=== PATIENT | male | born 1945 | race Caucasian/White ===

== ENCOUNTER 2016-07-27 23:30 | Observation (INO) | payer MEDICARE, OTHER ==
[~2016-07-27] VITALS: Ht 177.8 cm; Wt 117.2 kg
[2016-07-27 23:00] VITALS: PULSE 62
[~2016-07-27 23:30] MED LIST: FLUO-1 PO; FURO1TAB62 PO; HYDR-3535 PO; OXYC15TA55 PO; POTA-163 PO; TRAZ100T4 PO; XANA1TAB2 PO; b/p med PO
[2016-07-27 23:58] VITALS: BP 142/90; PULSE 62; RESP 20; TEMP 98.2; O2SAT 98
[2016-07-28] VITALS (10 sets, daily range): BP systolic 142–171; BP diastolic 84–105; PULSE 59–68; RESP 16–20; TEMP 96.3–98.9; O2SAT 95–98
[2016-07-28] MEDS ORDERED: SODIUM CHLORIDE 0.9% FLUSH 10 ML FLUSH PRN
[2016-07-28] MEDS ORDERED: ACETAMINOPHEN 325 MG TAB PO PRN (00:45)
[2016-07-28] MEDS ORDERED: traZODone HCL 100 MG TAB PO ONE (00:45)
[2016-07-28 01:28] LABS: CREATINE KINASE 92 U/L (39-308)
[2016-07-28 03:48] LABS: CREATINE KINASE 82 U/L (39-308)
[2016-07-28] MEDS ORDERED: NITROGLYCERIN 0.4 MG SL 25 TABS/BTL SL PRN (07:45)
[2016-07-28] MEDS ORDERED: cloNIDine HCL 0.1 MG TAB PO PRN (08:00)
--- NOTE | 2016-07-28 08:48 | HHI.HP ---
[facility] Admission Diagnosis Diagnoses: (1) Syncope Diagnosis: Principal (2) Chest pain Diagnosis: Principal (3) Hypertensive urgency Diagnosis: Principal Chief Complaint: "passed out", chest pain Travel History International Travel<30 Days: No Contact w/Intl Traveler <30 Da: No Traveled to Known Affected Are: No History of Present Illness Written by Enedina Agosto PA-C acting as scribe for on Dr. Tyson at ~0830. 71-year-old male with history of pacemaker, CAD, hypertension, chronic pain, anxiety presents with complaint of syncope and chest pain. He is a poor historian. Patient states that he had gotten up from bed yesterday morning and passed out. Admits to pain in his left shoulder and chest. He is unsure if chest pain preceded syncope or occurred afterward. He denies any lightheadedness or dizziness prior to syncope. Denies any associated shortness of breath or diaphoresis. He admits to headache now, but denies any headache yesterday. He states the chest pain lasted minutes and "knocked the wind" out of him. He denies taking anything for relief. He states he had been using icy hot for pain and in his back and legs recently. States he has chronic pain/ neuropathy in his legs after his bilateral knee replacements and uses a cane and walker at all times. Patient states chest pain is better today but states his BP is high and attributes it to pain. He is concerned about withdrawing from his pain medications. He states he tries not to take them even as often as prescribed. Patient states he sees a assistant librarian, Dr. Carroll on [facility], every 6 months. He had a stent placed a few years ago. Also states he has a heart murmur. Patient takes Lasix for leg swelling, but denies history of CHF. He denies any history of diabetes. Review of Systems ROS Limitations: Poor Historian Except as stated in HPI: all other systems reviewed are Neg Past Family Social History Past Medical History Coronary artery disease Hypertension Chronic pain/neuropathy anxiety Past Surgical History Pacemaker placement Coronary artery stent placement Bilateral knee replacements Brain aneurysm repair 2 in 2008 Reported Medications Lasix (Furosemide) 20 Mg Tab 20 Mg PO DAILY Lortab (Hydrocodone-Acetaminophen) 10-325 Mg Tab 1 Tab PO QID PRN Oxycontin (Oxycodone HCl) 15 Mg Tab 1 Tab PO BID Trazodone (Trazodone HCl) 100 Mg Tab 200 Mg PO BID Xanax (Alprazolam) 1 Mg Tab 1 Mg PO QID Potassium Chloride ER (Potassium Chloride) 20 Meq Tab 20 Meq PO DAILY Prozac (Fluoxetine HCl) 10 Mg Cap 10 Mg PO DAILY Amlodipine 5mg 1 Tab PO DAILY Allergies: Coded Allergies: No Known Allergies (Unverified , 07/27/16) Family History Mother and father: Metastatic cancer Social History Patient states he smokes "very little". He states he smokes stogies once in a while. Denies heavy alcohol. States he had alcohol the other night and had teaspoon of scotch yesterday. Does not admit to illicit drug use, but UDS positive for cannabinoids. Physical Exam Vital Signs Vital Signs Date Time Temp Pulse Resp B/P Pulse Ox O2 Delivery O2 Flow Rate FiO2 07/28/16 08:25 98 21 07/28/16 04:00 96.3 59 20 148/87 98 07/28/16 02:24 20 07/28/16 00:15 97 21 07/27/16 23:58 98.2 62 20 142/90 98 07/27/16 23:00 62 Physical Exam GENERAL: This is a pleasant well-nourished, well-developed patient, in no apparent distress. SKIN: No rashes, ecchymoses or lesions. Warm and dry. HEAD: Atraumatic. Normocephalic. EYES: No scleral icterus. No injection or drainage. NECK: Trachea midline. No carotid bruits bilaterally. CARDIOVASCULAR: Regular rate and rhythm without murmurs, gallops, or rubs. RESPIRATORY: Clear to auscultation. Breath sounds equal bilaterally. No wheezes , rales, or rhonchi. GASTROINTESTINAL: Normoactive bowel sounds. Abdomen nondistended. MUSCULOSKELETAL: No pretibial edema bilaterally. Tender over L ankle. NEUROLOGICAL: Awake and alert. Normal speech. PSYCHIATRIC: Normal mood and affect. Laboratory Laboratory Tests Test 07/28/16 07/28/16 00:25 03:15 Total Creatine Kinase 92 82 Troponin I LESS THAN 0.02 LESS THAN 0.[address] normal. Chest x-ray without acute disease. Assessment and Plan Assessment and Plan 71-year-old male with: Syncope: Patient appears to have passed out when he got up from bed yesterday. Likely orthostatic. CT of the brain performed in ED normal. -Orthostatic vital signs -Carotid ultrasound -Telemetry Chest pain: Troponin 4 less than 0.02. EKGs 3 with pacemaker spikes and no evidence of ischemia. EKG #3 with QTc of 460. Chest x-ray without acute disease. -Patient was given 324 mg of aspirin in the ED at 1999. Continue 81 mg daily aspirin this morning. -Nitroglycerin SL prn chest pain -Patient will undergo nuclear stress test. Remain nothing by mouth -Telemetry Hypertensive urgency: Highest BP of 193/89 in the ED. Patient was given 25 mg metoprolol in the ED. Patient's blood pressure improved but still elevated this morning. -Continue home Lasix -Have contacted pharmacy and confirmed patient is also prescribed Amlodipine 5 mg po daily. Chronic medical conditions include chronic pain and anxiety: Continue home medications. GI prophylaxis: Pepcid. DVT prevention: SCDs. Nuclear stress test negative for ischemia. Carotid ultrasound with atherosclerotic plaquing but no significant stenosis bilaterally. Orthostatic vital signs negative. Telemetry was reviewed and shows an accelerated idioventricular rhythm which occurred late last night as well as early this morning which is concerning. We will hold discharge and observe telemetry overnight. This note was transcribed by scribe [Enedina Agosto]. I, Dr. Edgar Tyson personally performed the history, physical exam, and medical decision making; and confirmed the accuracy of the information in the transcribed note. Authenticated by Dr. Edgar Tyson on 07/29/16 at 08:01. Enedina gAosto July 28, 2016 08:48 Edgar Tyson MD July 29, 2016 08:02
[2016-07-28] MEDS ORDERED: OXYCODONE PO SCH (09:00)
[2016-07-28] MEDS: SODIUM CHLORIDE 0.9% FLUSH 10 ML FLUSH IV FLUSH SCH ×2 (09:00→20:01)
[2016-07-28] MEDS: ALPRAZolam 1 MG TAB PO SCH ×4 (09:44→20:01)
[2016-07-28] MEDS: FUROSEMIDE 20 MG TAB PO SCH (09:44)
[2016-07-28] MEDS: POTASSIUM CHLORIDE 20 MEQ CONTROLLED RELEASE TAB PO SCH (09:44)
[2016-07-28] MEDS: traZODone HCL 100 MG TAB PO SCH ×2 (09:44→20:02)
[2016-07-28] MEDS: ACETAMINOPHEN/HYDROcodone 325 MG/10 MG TAB PO PRN ×3 (09:45→18:13)
[2016-07-28] MEDS ORDERED: REGADENOSON INJ 0.4 MG/5 ML SYR IV ONE (10:07)
[2016-07-28] MEDS: ASPIRIN EC 81 MG TABEC PO SCH (11:27)
[2016-07-28] MEDS: oxyCODONE HCL 10 MG CONTROLLED RELEASE TAB PO SCH ×2 (11:27→20:02)
[2016-07-28] MEDS: FAMOTIDINE 20 MG TAB PO SCH ×2 (11:27→20:02)
[2016-07-28] MEDS: FLUoxetine HCL 10 MG CAP PO SCH (11:27)
--- NOTE | 2016-07-28 11:34 | RADHPO ---
EXAM DATE/TIME: 07/28/2016 10:00 [facility] COMPARISON: No previous studies available for comparison. INDICATIONS : Chest pain for 1 day. Unable to walk on treadmill. Coronary artery disease. DOSE: 35 mCi Tc99m Myoview at stress. 11 mCi Tc99m Myoview at rest. 0.4 mg Lexiscan STRESS SYMPTOMS: Headache. EJECTION FRACTION: 66% MEDICAL HISTORY : Myocardial infarction. Hypertension. Current smoker. SURGICAL HISTORY : Coronary artery stent. Pacemaker. ENCOUNTER: Initial ACUITY: 1 day PAIN SCALE: 3/10 LOCATION: Bilateral chest TECHNIQUE: The patient underwent pharmacologic stress with infusion of prescribed dose. Continuous ECG tracing was monitored during stress. Gated SPECT imaging was performed after stress and conventional SPECT i maging was performed at rest. The examination was performed on a SPECT/CT scanner, both attenuation and non-corrected datasets were reviewed. FINDINGS: DISTRIBUTION: The maximum perfused segment at stress is in the anterolateral wall. PERFUSION STUDY: The pattern of perfusion at stress is within normal limits. GATED STUDY: There is intact wall motion and thickening without hypokinetic or dyskinetic segments. CONCLUSION: 1. No reversible perfusion defect to indicate stress-induced myocardial ischemia is identified. No si gnificant wall motion abnormalities are RISK CATEGORY: Low (<1% Annual Mortality Rate) Edgar Priest MD on July 28, 2016 at 11:30 Board Certified Radiologist. This report was verified electronically.
[2016-07-28] MEDS ORDERED: AMLO5 PO (12:02)
[2016-07-28] MEDS: amLODIPine BESYLATE 5 MG TAB PO SCH (14:05)
--- NOTE | 2016-07-28 14:31 | RADHPO ---
EXAM DATE/TIME: 07/28/2016 13:36 [facility] COMPARISON: No previous studies available for comparison. INDICATIONS : Syncope. MEDICAL HISTORY : Myocardial infarction. Hypertension. CAD. Arthritis. SURGICAL HISTORY : Coronary artery stent. Pacemaker. ENCOUNTER: Initial ACUITY: 1 day PAIN SCORE: 0/10 LOCATION: Bilateral neck PEAK SYSTOLIC VELOCITIES (cm/sec): ICA/CCA RATIO: Right: 1.0 Left: 0.6 ICA: Right: 67 Left: 69 CCA: Right: 70 Left: 116 ECA: Right: 90 Left: 100 VERTEBRAL: Right: 43 antegrade Left: 35 antegrade Elevated flow velocities and ICA/CCA ratios have been found to correlate with increased degrees of vessel stenosis, calculated as percentage of diameter relative to a normal segment of distal ICA/CCA FINDINGS: RIGHT CAROTID: No significant stenosis is visualized. There is moderate calcified atherosclerotic plaque. The wavef orms are within normal limits. LEFT CAROTID: No significant stenosis is visualized. There is moderate calcified atherosclerotic plaque. The wavefo frida are within normal limits. VERTEBRAL ARTERIES: Antegrade flow is seen in both vertebral arteries. MISCELLANEOUS: None. CONCLUSION: 1. Calcified atherosclerotic plaquing at the bifurcations bilaterally. No hemodynamically significant carotid artery stenosis identified. Edgar Priest MD on July 28, 2016 at 14:29 Board Certified Radiologist. This report was verified electronically.
--- NOTE | 2016-07-28 17:38 | HHI.DCPOC ---
Discharge Care Plan Diagnosis: (1) Syncope (2) Chest pain (3) Hypertensive urgency Your Health Problems Are: Chest Pain Goals to Promote Your Health * To prevent worsening of your condition and complications * To maintain your health at the optimal level Directions to Meet Your Goals Take your medications as prescribed Follow your dietary instruction Follow activity as directed Keep your appointments as scheduled Take your immunizations and boosters as scheduled If your symptoms worsen call your PCP, if no PCP go to Urgent Care Center or Emergency Room Smoking is Dangerous to Your Health. Avoid second hand smoke Call the 24-hour hour crisis hotline for domestic abuse at Enedina Agosto July 28, 2016 17:38
--- NOTE | 2016-07-28 19:37 | TR ---
Date Performed: 07/28/2016 Time Performed: 10:27:16 DOCTOR: Lauren Andrade DRUG LIST: CLINICAL HISTORY: CHEST PAIN REASON FOR TEST: REASON FOR ENDING: OBSERVATION: CONCLUSION: Lexiscan stress test was performed under standard four minute protocol. Radionuclid e was injected one minute prior to ending the test. No electrocardiographic abormalities were present to suggest ischemia. Nuclear imaging and interpretation are pending. COMMENTS:
--- NOTE | 2016-07-28 21:07 | EKG ---
Date Performed: 07/28/2016 Time Performed: 03:03:06 PTAGE: 71 years EKG: Atrial pacing Prolonged QT interval Abnormal ECG PREVIOUS TRACING : 07/28/2016 00.13 Compared to prior tracing no significant change DOCTOR: Rolando Bejarano Interpretating Date/Time 07/28/2016 21:06:20
--- NOTE | 2016-07-28 21:11 | EKG ---
Date Performed: 07/28/2016 Time Performed: 00:13:30 PTAGE: 71 years EKG: Atrial pacing Abnormal ECG NO PREVIOUS TRACING DOCTOR: Rolando Bejarano Interpretating Date/Time 07/28/2016 21:10:30
[2016-07-29 00:19] VITALS: BP 114/65; PULSE 60; RESP 20; TEMP 96.8; O2SAT 97
[2016-07-29 04:08] VITALS: BP 136/86; PULSE 60; RESP 16; TEMP 98; O2SAT 99
[2016-07-29 08:00] VITALS: BP 161/94; PULSE 60; RESP 18; TEMP 96.6; O2SAT 96
[2016-07-29] MEDS: FLUoxetine HCL 10 MG CAP PO SCH (08:32)
[2016-07-29] MEDS: ASPIRIN EC 81 MG TABEC PO SCH (08:32)
[2016-07-29] MEDS: ALPRAZolam 1 MG TAB PO SCH ×2 (08:32→12:13)
[2016-07-29] MEDS: FUROSEMIDE 20 MG TAB PO SCH (08:32)
[2016-07-29] MEDS: POTASSIUM CHLORIDE 20 MEQ CONTROLLED RELEASE TAB PO SCH (08:32)
[2016-07-29] MEDS: traZODone HCL 100 MG TAB PO SCH (08:32)
[2016-07-29] MEDS: FAMOTIDINE 20 MG TAB PO SCH (08:32)
[2016-07-29] MEDS: oxyCODONE HCL 10 MG CONTROLLED RELEASE TAB PO SCH (08:32)
[2016-07-29] MEDS: amLODIPine BESYLATE 5 MG TAB PO SCH (08:32)
[2016-07-29] MEDS: SODIUM CHLORIDE 0.9% FLUSH 10 ML FLUSH IV FLUSH SCH (08:33)
--- NOTE | 2016-07-29 09:19 | HHI.DS ---
Discharge Summary Admission Date July 27, 2016 at 11:31 pm Discharge Date: July 29, 2016 Admitting Diagnosis (1) Syncope ICD Code: R55 Diagnosis: Principal (2) Chest pain ICD Code: R07.9 Diagnosis: Principal (3) Hypertensive urgency ICD Code: I16.0 Diagnosis: Principal (4) Ventricular tachycardia ICD Code: I47.2 Diagnosis: Principal Procedures chemical stress test Brief History - From Admission Written by Enedina Agosto PA-C acting as scribe for on Dr. Tyson at ~0830. 71-year-old male with history of pacemaker, CAD, hypertension, chronic pain, anxiety presents with complaint of syncope and chest pain. He is a poor historian. Patient states that he had gotten up from bed yesterday morning and passed out. Admits to pain in his left shoulder and chest. He is unsure if chest pain preceded syncope or occurred afterward. He denies any lightheadedness or dizziness prior to syncope. Denies any associated shortness of breath or diaphoresis. He admits to headache now, but denies any headache yesterday. He states the chest pain lasted minutes and "knocked the wind" out of him. He denies taking anything for relief. He states he had been using icy hot for pain and in his back and legs recently. States he has chronic pain/ neuropathy in his legs after his bilateral knee replacements and uses a cane and walker at all times. Patient states chest pain is better today but states his BP is high and attributes it to pain. He is concerned about withdrawing from his pain medications. He states he tries not to take them even as often as prescribed. Patient states he sees a inweaver, Dr. Carroll on [facility], every 6 months. He had a stent placed a few years ago. Also states he has a heart murmur. Patient takes Lasix for leg swelling, but denies history of CHF. He denies any history of diabetes. Significant Findings Laboratory Tests Test 07/28/16 07/28/16 00:25 03:15 Troponin I LESS THAN 0.02 LESS THAN 0.02 NG/ML NG/ML (0.02-0.05) (0.02-0.05) PE at Discharge GENERAL: NAD, A&Ox3 SKIN: Warm and dry. HEAD: Normocephalic. EYES: No scleral icterus. No injection or drainage. NECK: Supple, trachea midline. No JVD or lymphadenopathy. CARDIOVASCULAR: Regular rate and rhythm without murmurs, gallops, or rubs. RESPIRATORY: Breath sounds equal bilaterally. No accessory muscle use. GASTROINTESTINAL: Abdomen soft, non-tender, nondistended. MUSCULOSKELETAL: No cyanosis, or edema. BACK: Nontender without obvious deformity. No CVA tenderness. Hospital Course Mr. Krishnan 71-year-old male admitted with chest pain. Consider work up including cardiac enzymes and a stress test all of which was normal. Discharge was held one day due to a brief run of ventricular tachycardia. Monitoring overnight showed no repeat episodes of ventricular tachycardia. She has been chest pain-free since admission. No other complaints. Medically stable for discharge today. No changes in baseline treatments, no new medications. Pt Condition on Discharge: Stable Discharge Disposition: Discharge Home Discharge Time: <= 30 minutes Discharge Instructions DIET: Follow Instructions for: Heart Healthy Diet Activities you can perform: Regular-No Restrictions Follow up Referrals: Cardiology - 1 Week PCP Follow-up - 1 Week Continued Medications: Alprazolam (Xanax) 1 Mg Tab 1 MG PO QID ANXIETY Ref 0 TAB Amlodipine (Norvasc) 5 Mg Tab 5 MG PO DAILY Blood Pressure Management #30 Ref 0 TAB Fluoxetine (Prozac) 10 Mg Cap 10 MG PO DAILY #30 Ref 0 CAP Furosemide (Lasix) 20 Mg Tab 20 MG PO DAILY #30 Ref 0 TAB Hydrocodone-Acetaminophen (Lortab) 10-325 Mg Tab 1 TAB PO QID PRN PAIN Ref 0 TAB Oxycodone ER (Oxycontin) 15 Mg Tab 1 TAB PO BID Potassium Chloride ER (Potassium Chloride ER) 20 Meq Tab 20 MEQ PO DAILY Electrolyte Replacement #30 Ref 0 TAB Trazodone (Trazodone) 100 Mg Tab 200 MG PO BID Control Depression #30 Ref 0 TAB Discontinued Medications: ([b/p med]) 1 TAB PO DAILY Edgar Tyson MD July 29, 2016 9:19 am
[2016-07-29 10:00] VITALS: PULSE 65; PULSE 66
[2016-07-29] MEDS: ACETAMINOPHEN/HYDROcodone 325 MG/10 MG TAB PO PRN (12:13)
== END 2016-07-29 12:59 | disposition home or self-care (01) ==
LOC: PHEDDLT 23:30 → PH3B 23:31
PROVIDERS: ADMIT Hospitalist; ATTEND Hospitalist
DX: R55 Syncope and collapse (principal); R07.9 Chest pain, unspecified; I16.0 Hypertensive urgency; I47.2 Ventricular tachycardia; I10 Essential (primary) hypertension; G89.29 Other chronic pain; M25.512 Pain in left shoulder; F41.9 Anxiety disorder, unspecified; R51 Headache; I25.10 Atherosclerotic heart disease of native coronary artery without angina pectoris; R01.1 Cardiac murmur, unspecified; G62.9 Polyneuropathy, unspecified; M79.89 Other specified soft tissue disorders; Z95.5 Presence of coronary angioplasty implant and graft; Z95.0 Presence of cardiac pacemaker; Z96.653 Presence of artificial knee joint, bilateral
CPT/HCPCS: 70450; 71010; 78452; 80053; 80307; 81003; 82550; 82552; 84484; 85025; 85730; 93005; 93017; 93880; 99285; A9502; G0378; J2785; 99281

== ENCOUNTER 2016-09-09 17:08 | Emergency (ER) | payer MEDICARE, OTHER ==
[~2016-09-09] VITALS: Ht 177.8 cm; Wt 115.0 kg
[~2016-09-09 17:08] MED LIST changes: +AMLO5 PO; -b/p med PO
[2016-09-09 17:13] VITALS: BP 122/74; PULSE 84; RESP 18; TEMP 98.2; O2SAT 93
[2016-09-09] MEDS ORDERED: TRAZ100T6 PO (17:29)
--- NOTE | 2016-09-09 17:40 | PD ---
HPI Chief Complaint: Flank/Kidney Pain Time Seen by Provider: 17:37 Travel History International Travel<30 days: No Contact w/Intl Traveler<30days: No Traveled to known affect area: No History of Present Illness HPI 71-year-old male with history of chronic pain, CAD, hypertension, pacemaker placement, anxiety presents to emergency department for evaluation of left flank pain. Patient states 2 days ago he fell out of bed. He struck his head and the left side of his body. He states he did not seek evaluation following this fall. He decided to come to the emergency department today because of the last 2 days he has had increasing left flank pain and it is more difficult to ambulate secondary to this pain. Denies any other focal deficits or weakness. Denies any chest tightness. No nausea or vomiting. He has no other symptoms to report. PFSH Past Medical History Arthritis: Yes Anxiety: Yes Depression: Yes Heart Rhythm Problems: No Cancer: No Cardiovascular Problems: Yes High Cholesterol: No Chest Pain: Yes Congestive Heart Failure: No Coronary Artery Disease: Yes Diabetes: No Diminished Hearing: No Endocrine: No Genitourinary: No Hypertension: Yes Immune Disorder: No Implanted Vascular Access Dvce: Yes Musculoskeletal: Yes Neurologic: No Psychiatric: Yes Reproductive: No Respiratory: No Tetanus Vaccination: > 5 Years Influenza Vaccination: No Past Surgical History Abdominal Surgery: No AICD: Yes Arteriovenous Shunt: No Body Medical Devices: pacemaker Cardiac Surgery: Yes (PACEMAKER) Coronary Stent: Yes Ear Surgery: No Endocrine Surgery: No Eye Surgery: No Genitourinary Surgery: No Gynecologic Surgery: No Insulin Pump: No Joint Replacement: No Neurologic Surgery: Yes (2009 BRAIN ANEURYSM X2) Oral Surgery: No Pacemaker: Yes Thoracic Surgery: No Other Surgery: Yes Social History Alcohol Use: Yes (socially) Tobacco Use: Yes (a pack of cigars a week) Substance Use: No Allergies-Medications (Allergen,Severity, Reaction): Coded Allergies: No Known Allergies (Unverified , 07/27/16) Reported Meds & Prescriptions Reported Meds & Active Scripts Active Keflex (Cephalexin) 500 Mg Cap 500 Mg PO Q12H 10 Days Reported Trazodone (Trazodone HCl) 100 Mg Tablet 100 Mg PO BID Norvasc (Amlodipine Besylate) 5 Mg Tab 5 Mg PO DAILY Lasix (Furosemide) 20 Mg Tab 20 Mg PO DAILY Lortab (Hydrocodone-Acetaminophen) 10-325 Mg Tab 1 Tab PO QID PRN Oxycontin (Oxycodone HCl) 15 Mg Tab 1 Tab PO BID Xanax (Alprazolam) 1 Mg Tab 1 Mg PO QID Potassium Chloride ER (Potassium Chloride) 20 Meq Tab 20 Meq PO DAILY Prozac (Fluoxetine HCl) 10 Mg Cap 10 Mg PO DAILY Review of Systems Except as stated in HPI: all other systems reviewed are Neg Physical Exam Narrative GENERAL: Well-nourished elderly male patient, in no acute distress SKIN: Focused skin assessment warm/dry. Abrasion to the right forehead. There is a 6 cm in diameter skin tear to the right forearm. There is another abrasion to the left elbow and left ankle. There is a 15 cm in diameter ecchymosis area over the left stereo lateral flank. HEAD:Normocephalic. EYES: Pupils equal and round. EOMI. No scleral icterus. No injection or drainage. ENT: No nasal bleeding or discharge. Mucous membranes pink and moist. NECK: Trachea midline. No JVD. No cervical spine tenderness to palpation. Full range of motion of cervical spine. CARDIOVASCULAR: Regular rate and rhythm. No murmur appreciated. RESPIRATORY: No accessory muscle use. Clear to auscultation. Breath sounds equal bilaterally. No tenderness elicited palpation of the thoracic cage. Even respirations. GASTROINTESTINAL: Abdomen soft, non-tender, nondistended. Hepatic and splenic margins not palpable. MUSCULOSKELETAL: No obvious deformities. No clubbing. No cyanosis. No edema. NEUROLOGICAL: Awake and alert. No obvious cranial nerve deficits. Motor grossly within normal limits. Normal speech. Data Data Last Documented VS Vital Signs Date Time Temp Pulse Resp B/P Pulse Ox O2 Delivery O2 Flow Rate FiO2 09/09/16 19:16 60 18 130/80 97 Room Air 09/09/16 17:13 98.2 Orders Complete Blood Count With Diff (09/09/16 17:42) Comprehensive Metabolic Panel (09/09/16 17:42) Lipase (09/09/16 17:42) Prothrombin Time / Inr (Pt) (09/09/16 17:42) Act Partial Throm Time (Ptt) (09/09/16 17:42) Urinalysis - C+S If Indicated (09/09/16 17:42) Ct Abd/Pel W Iv Contrast(Rout) (09/09/16 17:42) Iv Access Insert/Monitor (09/09/16 17:42) Ecg Monitoring (09/09/16 17:42) Oximetry (09/09/16 17:42) Sodium Chlor 0.9% 1000 Ml Inj (Ns 1000 M (09/09/16 17:42) Sodium Chloride 0.9% Flush (Ns Flush) (09/09/16 17:45) Electrocardiogram (09/09/16 17:42) Chest, Single Ap (09/09/16 17:42) Ct Brain W/O Iv Contrast(Rout) (09/09/16 ) Ct Cerv Spine W/O Contrast (09/09/16 ) Iohexol 350 Inj (Omnipaque 350 Inj) (09/09/16 19:01) Urine Culture (09/09/16 18:45) Ketorolac Inj (Toradol Inj) (09/09/16 19:45) Ceftriaxone Inj (Rocephin Inj) (09/09/16 19:45) Labs Laboratory Tests Test 09/09/16 09/09/16 17:38 18:45 White Blood Count 4.7 TH/MM3 Red Blood Count 3.82 MIL/MM3 Hemoglobin 11.0 GM/DL Hematocrit 34.1 % Mean Corpuscular Volume 89.4 FL Mean Corpuscular Hemoglobin 28.9 PG Mean Corpuscular Hemoglobin 32.3 % Concent Red Cell Distribution Width 13.7 % Platelet Count 86 TH/MM3 Mean Platelet Volume 10.7 FL Neutrophils (%) (Auto) 75.5 % Lymphocytes (%) (Auto) 13.1 % Monocytes (%) (Auto) 9.1 % Eosinophils (%) (Auto) 1.8 % Basophils (%) (Auto) 0.5 % Neutrophils # (Auto) 3.6 TH/MM3 Lymphocytes # (Auto) 0.6 TH/MM3 Monocytes # (Auto) 0.4 TH/MM3 Eosinophils # (Auto) 0.1 TH/MM3 Basophils # (Auto) 0.0 TH/MM3 CBC Comment AUTO DIFF Differential Comment AUTO DIFF CONFIRMED Prothrombin Time 12.8 SEC Prothromb Time International 1.2 RATIO Ratio Activated Partial 30.6 SEC Thromboplast Time Sodium Level 140 MEQ/L Potassium Level 3.6 MEQ/L Chloride Level 105 MEQ/L Carbon Dioxide Level 30.4 MEQ/L Anion Gap 5 MEQ/L Blood Urea Nitrogen 13 MG/DL Creatinine 1.34 MG/DL Estimat Glomerular Filtration 53 ML/MIN Rate Random Glucose 102 MG/DL Calcium Level 8.5 MG/DL Total Bilirubin 0.7 MG/DL Aspartate Amino Transf 34 U/L (AST/SGOT) Alanine Aminotransferase 21 U/L (ALT/SGPT) Alkaline Phosphatase 37 U/L Total Protein 6.4 GM/DL Albumin 3.5 GM/DL Lipase 87 U/L Urine Color YELLOW Urine Turbidity HAZY Urine pH 6.0 Urine Specific [place] 1.024 Urine Protein 30 mg/dL Urine Glucose (UA) NEG mg/dL Urine Ketones NEG mg/dL Urine Occult Blood NEG Urine Nitrite NEG Urine Bilirubin NEG Urine Urobilinogen 4.0 MG/DL Urine Leukocyte Esterase MOD Urine RBC 2 /hpf Urine WBC 12 /hpf Urine Squamous Epithelial 1 /hpf Cells Urine Bacteria RARE /hpf Urine Hyaline Casts 32 /lpf Urine Mucus MANY /lpf Microscopic Urinalysis Comment CULTURE INDICATED MDM Medical Decision Making Medical Screen Exam Complete: Yes Emergency Medical Condition: Yes Medical Record Reviewed: Yes Differential Diagnosis Contusion versus visceral injury versus intracranial hemorrhage versus minor head injury versus the left foot abnormality versus syncope versus near syncope Narrative Course 71-year-old male presents to the emergency department for evaluation left flank pain following a trip and fall 2 days ago. Patient appears without distress. He does have ecchymosis of the left posterior lateral flank. He has abrasion on his head. He has no focal deficits or weakness. Vital signs are stable. CBC and CMP are without acute concern. Urinalysis is hazy with 30 protein area , moderate leukocyte esterase, 12 WBC, rare bacteria, many mucus. Cultures indicated. Last Impressions Chest X-Ray [id number] Signed Impressions: Service Date/Time: Friday, September 09, 2016 17:56 - CONCLUSION: 1. Pacer leads overlying right atrium and right ventricle. Minimal basal atelectasis. Sandoval Peña MD Abdomen/Pelvis CT [id number] Signed Impressions: Service Date/Time: Friday, September 09, 2016 18:59 - CONCLUSION: 1. No acute abnormality seen. 2. Degenerative changes in the lumbar spine. 3. Right renal stone and right renal cysts. Tesfaye Marie MD Head CT 09/09/16 0000 Signed Impressions: Service Date/Time: Friday, September 09, 2016 18:51 - CONCLUSION: No acute disease. Tesfaye Marie MD Cervical Spine CT 09/09/16 0000 Signed Impressions: Service Date/Time: Friday, September 09, 2016 18:51 - CONCLUSION: 1. Extensive spondylosis with partial fusion across every level of the cervical spine between C2 and C7. Moderate to severe AP canal stenosis as above. Sandoval Peña MD I have reviewed the findings with the patient. I have also discussed the patient with my attending physician. Patient will be discharged home to follow- up with a primary care provider. He agrees to return immediately with any acute worsening of symptoms. He reports having an appointment with his primary care provider on Sunday. Diagnosis Primary Impression: Left flank pain Additional Impressions: Minor head injury without loss of consciousness Qualified Code: S09.90XA - Minor head injury without loss of consciousness, initial encounter History of fall UTI (urinary tract infection) Qualified Code: N39.0 - Urinary tract infection without hematuria, site unspecified Referrals: Primary Care Physician Urologist Patient Instructions: Flank Pain (ED), General Instructions, Head Injury (ED), Urinary Tract Infection in Men (ED) Additional Instructions: Maintain adequate oral hydration Follow-up with a primary care provider Continue pain medication as already prescribed Return immediately to the emergency department with any acute worsening of symptoms Med/Other Pt SpecificInfo: Prescription(s) given Scripts Cephalexin (Keflex)500 Mg [id number] Mg PO Q12H 10 Days Ref 0 Prov:Destiny John 09/09/16 Disposition: 01 DISCHARGE HOME Condition: Stable Destiny John Sep 09, 2016 17:39
[2016-09-09] MEDS ORDERED: SODIUM CHLOR 0.9% 1000 ML INJ 1,000 ML IV SCH (17:42)
[2016-09-09] MEDS ORDERED: SODIUM CHLORIDE 0.9% FLUSH 10 ML FLUSH IV FLUSH PRN (17:45)
--- NOTE | 2016-09-09 18:04 | RADRPT ---
EXAM DATE/TIME: 09/09/2016 17:56 [facility] COMPARISON: CHEST SINGLE AP, July 27, 2016, 16:40. INDICATIONS : Shortness of breath since fall a couple days ago. MEDICAL HISTORY : Myocardial infarction. Hypertension. CAD. Arthritis. SURGICAL HISTORY : Coronary artery stent. Pacemaker. ENCOUNTER: Initial ACUITY: 3 days PAIN SCORE: 0/10 LOCATION: Bilateral chest FINDINGS: A single view of the chest demonstrates the lungs to be symmetrically aerated without evidence of mas s, infiltrate or effusion. Minimal basal atelectasis. Tortuous aorta. The cardiomediastinal contours are unremarkable. Osseous structures are intact. CONCLUSION: 1. Pacer leads overlying right atrium and right ventricle. Minimal basal atelectasis. Sandoval Peña MD on September 09, 2016 at 18:00 Board Certified Radiologist. This report was verified electronically.
[2016-09-09 18:28] LABS: AUTOMATED NEUTROPHIL # 3.6 TH/MM3 (1.8-7.7); BASOPHIL % 0.5 % (0.0-2.0); EOSINOPHIL # 0.1 TH/MM3 (0-0.4); EOSINOPHIL % 1.8 % (0.0-4.0); HEMATOCRIT 34.1 % (39.0-51.0); LYMPH % 13.1 % (9.0-44.0); LYMPHOCYTE # 0.6 TH/MM3 (1.0-4.8); MEAN CELL VOLUME 89.4 FL (80.0-100.0); MEAN CORPUSCULAR HEMOGLOBIN 28.9 PG (27.0-34.0); MEAN CORPUSCULAR HGB CONC 32.3 % (32.0-36.0); MONO % 9.1 % (0.0-8.0); NEUT % 75.5 % (16.0-70.0); PLATELET COUNT 86 TH/MM3 (150-450); RED BLOOD COUNT 3.82 MIL/MM3 (4.50-5.90); RED CELL DISTRIBUTION WIDTH 13.7 % (11.6-17.2); WHITE BLOOD COUNT 4.7 TH/MM3 (4.0-11.0)
[2016-09-09 18:30] LABS: HEMO FLAGS AUTO DIFF
[2016-09-09 18:38] LABS: APTT (PATIENT) 30.6 SEC (24.3-30.1); INTERNATIONAL NORMALIZED RATIO 1.2 RATIO; PROTHROMBIN TIME - PATIENT 12.8 SEC (9.8-11.6)
[2016-09-09 18:40] LABS: ANION GAP 5 MEQ/L (5-15); AST (GOT) 34 U/L (15-37); BICARBONATE 30.4 MEQ/L (21.0-32.0); BLOOD UREA NITROGEN 13 MG/DL (7-18); CHLORIDE 105 MEQ/L (98-107); GLOMERULAR FILTRATION RATE 53 ML/MIN (>89); POTASSIUM 3.6 MEQ/L (3.5-5.1); SODIUM (NA) 140 MEQ/L (136-145)
[2016-09-09 18:42] LABS: ALT (GPT) 21 U/L (12-78)
[2016-09-09 18:43] LABS: ALKALINE PHOSPHATASE 37 U/L (45-117); TOTAL BILIRUBIN ADULT 0.7 MG/DL (0.2-1.0)
--- NOTE | 2016-09-09 19:00 | RADRPT ---
EXAM DATE/TIME: 09/09/2016 18:51 [facility] COMPARISON: CT BRAIN W/O CONTRAST, July 27, 2016, 16:49. INDICATIONS : Trauma; fall. RADIATION DOSE: 55.46 CTDIvol (mGy) MEDICAL HISTORY : Cardiovascular disease. Hypertension. SURGICAL HISTORY : Brain ENCOUNTER: Initial ACUITY: 1 day PAIN SCALE: 5/10 LOCATION: cranial TECHNIQUE: Multiple contiguous axial images were obtained of the head. Using automated exposure control and adj ustment of the mA and/or kV according to patient size, radiation dose was kept as low as reasonably a chievable to obtain optimal diagnostic quality images. DICOM format image data is available electro nically for review and comparison. FINDINGS: CEREBRUM: The ventricles are normal for age. No evidence of midline shift, mass lesion, hemorrhage or acute in farction. No extra-axial fluid collections are seen. POSTERIOR FOSSA: The cerebellum and brainstem are intact. The 4th ventricle is midline. The cerebellopontine angle i s unremarkable. EXTRACRANIAL: The visualized portion of the orbits is intact. SKULL: No evidence of skull fracture. There is postoperative change at the left parietal bone. CONCLUSION: No acute disease. Tesfaye Marie MD on September 09, 2016 at 18:56 Board Certified Radiologist. This report was verified electronically.
[2016-09-09] MEDS ORDERED: IOHEXOL 350 MG/ML 10 ML VIAL (for RAD DIAG) IV ONE (19:01)
[2016-09-09 19:03] LABS: SCAN/DIFF AUTO DIFF CONFIRMED
--- NOTE | 2016-09-09 19:05 | RADRPT ---
EXAM DATE/TIME: 09/09/2016 18:51 [facility] COMPARISON: No previous studies available for comparison. INDICATIONS : Trauma; fall. RADIATION DOSE: 21.46 CTDIvol (mGy) MEDICAL HISTORY : Cardiovascular disease. Hypertension. SURGICAL HISTORY : None. ENCOUNTER: Initial ACUITY: 1 day PAIN SCALE: 4/10 LOCATION: Bilateral neck TECHNIQUE: Volumetric scanning of the cervical spine was performed. Multiplanar reconstructions in the sagittal, coronal and oblique axial planes were performed. Using automated exposure control and adjustment o f the mA and/or kV according to patient size, radiation dose was kept as low as reasonably achievable to obtain optimal diagnostic quality images. DICOM format image data is available electronically f or review and comparison. FINDINGS: There is spondylosis and at least partial fusion of the entire cervical spine extending from C2-C7. T here is moderate to severe AP canal stenosis at C3-4-5-6 and moderate stenosis at C6-7. No fracture o r spondylolisthesis. No bony destructive changes. CONCLUSION: 1. Extensive spondylosis with partial fusion across every level of the cervical spine between C2 and C7. Moderate to severe AP canal stenosis as above. Sandoval Peña MD on September 09, 2016 at 19:00 Board Certified Radiologist. This report was verified electronically.
[2016-09-09 19:16] VITALS: BP 130/80; PULSE 60; RESP 18; O2SAT 97
--- NOTE | 2016-09-09 19:20 | RADRPT ---
EXAM DATE/TIME: 09/09/2016 18:59 [facility] COMPARISON: No previous studies available for comparison. INDICATIONS : Trauma; fall. IV CONTRAST: 87 cc Omnipaque 350 (iohexol) IV ORAL CONTRAST: No oral contrast ingested. RADIATION DOSE: 8.26 CTDIvol (mGy) MEDICAL HISTORY : Hypertension. Cardiovascular disease SURGICAL HISTORY : None. ENCOUNTER: Initial ACUITY: 1 day PAIN SCALE: 3/10 LOCATION: Bilateral abdomen. TECHNIQUE: Volumetric scanning of the abdomen and pelvis was performed. Using automated exposure control and ad justment of the mA and/or kV according to patient size, radiation dose was kept as low as reasonably achievable to obtain optimal diagnostic quality images. DICOM format image data is available electro nically for review and comparison. FINDINGS: LOWER CHEST: There is a prosthetic aortic valve in place. A pacing lead is seen in the right heart. There is atele ctasis at the posterior lung bases. LIVER: Homogeneous density without lesion. No calcified gallstones. The gallbladder is distended. Biliary d uct dilatation is not seen. SPLEEN: Normal size without lesion. PANCREAS: Within normal limits. KIDNEYS: Normal in size and shape. There is no hydronephrosis. There is a 2 mm nonobstructing right renal sto ne. There is a 4.4 cm cyst at the upper right kidney and a 1 cm cyst at the lower right kidney. ADRENAL GLANDS: Within normal limits. VASCULAR: There is no aortic aneurysm. Aortic calcifications are seen. BOWEL/MESENTERY: The stomach, small bowel, and colon demonstrate no acute abnormality. There is no free intraperitone al air or fluid. ABDOMINAL WALL: Within normal limits. RETROPERITONEUM: There is no lymphadenopathy. BLADDER: No wall thickening or mass. REPRODUCTIVE: Bilateral hydroceles are seen. INGUINAL: There is no lymphadenopathy or hernia. MUSCULOSKELETAL: There is degenerative change in the lumbar spine. CONCLUSION: 1. No acute abnormality seen. 2. Degenerative changes in the lumbar spine. 3. Right renal stone and right renal cysts. Tesfaye Marie MD on September 09, 2016 at 19:13 Board Certified Radiologist. This report was verified electronically.
[2016-09-09 19:24] LABS: BACTERIA, URINE RARE /hpf; BLOOD, URINE NEG (NEG); COMMENT (UR) CULTURE INDICATED; CULTURE IF INDICATED CULTURE INDICATED; GLUCOSE,URINE NEG (NEG); HYALINE CAST, URINE 32 /lpf (RARE); KETONE, URINE NEG (NEG); MUCUS URINE MANY /lpf (OCC); NITRITE,URINE NEG (NEG); SQUAMOUS EPITHELIAL CELL URINE 1 /hpf (0-5); URINE COLOR YELLOW (YELLW/STRAW)
[2016-09-09] MEDS ORDERED: cefTRIAXone INJ 1,000 MG in SODIUM CHLORIDE 0.9% INJ 100 ML IV ONE (19:45)
[2016-09-09] MEDS ORDERED: KETOROLAC TROMETHAMINE 30 MG/ML (IVP) VIAL IV PUSH ONE (19:45)
[2016-09-09] MEDS ORDERED: CEPH-460 PO (20:25)
--- NOTE | 2016-09-10 13:36 | EKG ---
Date Performed: 09/09/2016 Time Performed: 17:58:52 PTAGE: 71 years EKG: ELECTRONIC ATRIAL PACEMAKER PROLONGED QT INTERVAL Compared to previous tracing, the atrial rhythm is now paced, and there's been a lengthening of the MS interval. QT interval is now prolonged. ABNORMAL ECG PREVIOUS TRACING : 07/28/2016 03.03 DOCTOR: Sandra Kaplan Interpretating Date/Time 09/10/2016 13:36:08
== END 2016-09-09 20:42 | disposition home or self-care (01) ==
LOC: NEPC 17:08
DX: R10.9 Unspecified abdominal pain (principal); S09.90XA Unspecified injury of head, initial encounter; S00.81XA Abrasion of other part of head, initial encounter; S30.1XXA Contusion of abdominal wall, initial encounter; N39.0 Urinary tract infection, site not specified; R94.31 Abnormal electrocardiogram [ECG] [EKG]; I10 Essential (primary) hypertension; W06.XXXA Fall from bed, initial encounter; Z72.0 Tobacco use; Z95.0 Presence of cardiac pacemaker; Z87.39 Personal history of other diseases of the musculoskeletal system and connective tissue; Z86.79 Personal history of other diseases of the circulatory system; Z86.59 Personal history of other mental and behavioral disorders
CPT/HCPCS: 70450; 71010; 72125; 74177; 80053; 81001; 83690; 85025; 85610; 85730; 87086; 93005; 96361; 96365; 96375; 99285; J0696; J1885; J7030; Q9967

== ENCOUNTER 2017-02-14 03:21 | Emergency (ER) | payer MEDICARE, OTHER ==
[~2017-02-14] VITALS: Ht 180.3 cm; Wt 110.0 kg
[~2017-02-14 03:21] MED LIST changes: +CEPH-460 PO; +TRAZ100T10 PO; -TRAZ100T4 PO
[2017-02-14 03:27] VITALS: BP 138/75; PULSE 69; RESP 18; TEMP 97.8; O2SAT 97
[2017-02-14] MEDS ORDERED: GABA600T PO (03:48)
[2017-02-14] MEDS ORDERED: HYDR-2374 PO (03:48)
[2017-02-14] MEDS ORDERED: PERC10TA27 PO (03:48)
[2017-02-14] MEDS ORDERED: AZIT250T3 PO (03:48)
--- NOTE | 2017-02-14 03:54 | PD ---
HPI Chief Complaint: OD/ Ingestion Time Seen by Provider: 03:47 Travel History International Travel<30 days: No Contact w/Intl Traveler<30days: No Traveled to known affect area: No History of Present Illness HPI The patient is a 71 year old male who presents to the [facility] emergency department with a history of being found unresponsive at home prior to arrival. The patient was noted to have snoring respirations with respiratory rate of 10 , associated with pinpoint pupils. The patient's O2 saturation on room air was 79%. IV access was obtained by ambulance services prior to arrival in the left EJ and the patient was given 0.4 mg of Narcan. The patient then became awake and alert and arrives with a GCS of 15. The patient denies having any acute complaints. The patient is noted to have lower extremity edema, however he reports that this is chronic over the last few years since he developed a neuropathy after having left knee surgery. The patient additionally is noted to have swelling of the groin. The patient reports that this is been present for the last 34 years. On review of systems otherwise, the patient denies having any known fevers or chills, cough or congestion, neck pain, chest pain, shortness of breath, abdominal pain, vomiting, diarrhea, urinary symptoms, or other neurologic symptoms. The patient reports that he takes Lortab, Percocet, gabapentin, and Xanax for his pain. He denies taking any extra pain medication this evening. He denies any suicidal ideations. [facility] Past Medical History Narrative Medical The patient's past medical history is significant for cardiac arrhythmia status post pacemaker placement, history of peripheral neuropathy managed by pain management, history of hypertension. The patient reports that his primary care physician and pain management physician or Dr. Correa. Arthritis: Yes Anxiety: Yes Depression: Yes Heart Rhythm Problems: No Cancer: No Cardiovascular Problems: Yes High Cholesterol: No Chest Pain: Yes Congestive Heart Failure: No Coronary Artery Disease: Yes Diabetes: No Diminished Hearing: No Endocrine: No Genitourinary: No Hypertension: Yes Immune Disorder: No Implanted Vascular Access Dvce: Yes Musculoskeletal: Yes Neurologic: No Psychiatric: Yes Reproductive: No Respiratory: No Past Surgical History Narrative Surgical The patient's past surgical history is significant for brain aneurysm surgery, history of pacemaker placement, history of bilateral knee surgery. Abdominal Surgery: No AICD: Yes Arteriovenous Shunt: No Body Medical Devices: pacemaker Cardiac Surgery: Yes (PACEMAKER) Coronary Stent: Yes Ear Surgery: No Endocrine Surgery: No Eye Surgery: No Genitourinary Surgery: No Gynecologic Surgery: No Insulin Pump: No Joint Replacement: No Neurologic Surgery: Yes (2009 BRAIN ANEURYSM X2) Oral Surgery: No Pacemaker: Yes Thoracic Surgery: No Other Surgery: Yes Social History Alcohol Use: Yes (socially) Tobacco Use: Yes (a pack of cigars a week) Substance Use: No Allergies-Medications (Allergen,Severity, Reaction): Coded Allergies: No Known Allergies (Unverified , 07/27/16) Reported Meds & Prescriptions Reported Meds & Active Scripts Active Reported Gabapentin 600 Mg Tab 600 Mg PO BID Azithromycin 250 Mg Tab 250 Mg PO DIRECTED Take 2 tabs (500 mg) on day 1 then 1 tab daily x 4 days. Percocet (Oxycodone-Acetaminophen) 10-325 mg Tab 1 Tab PO Q6H PRN Hydrocodone-Acetaminophen 10-300 Tab 1 Tab PO TID PRN Trazodone (Trazodone HCl) 100 Mg Tablet 100 Mg PO BID Norvasc (Amlodipine Besylate) 5 Mg Tab 5 Mg PO DAILY Lasix (Furosemide) 20 Mg Tab 20 Mg PO DAILY Oxycontin (Oxycodone HCl) 15 Mg Tab 1 Tab PO BID Xanax (Alprazolam) 1 Mg Tab 1 Mg PO QID Potassium Chloride ER (Potassium Chloride) 20 Meq Tab 20 Meq PO DAILY Prozac (Fluoxetine HCl) 10 Mg Cap 10 Mg PO DAILY Review of Systems Except as stated in HPI: all other systems reviewed are Neg General / Constitutional: No: Fever Eyes: No: Visual changes HENT: No: Headaches Cardiovascular: No: Chest Pain or Discomfort Respiratory: No: Shortness of Breath Gastrointestinal: No: Abdominal Pain Genitourinary: No: Dysuria Musculoskeletal: No: Pain Skin: No Rash Neurologic: Positive: Change in Mentation, No: Weakness, Focal Abnormalities, Slurred Speech, Sensory Disturbance Psychiatric: No: Depression Endocrine: No: Polydipsia Hematologic/Lymphatic: No: Easy Bruising Physical Exam Narrative General: The patient is a well-developed well-nourished male in no acute distress. Head and Neck exam: Head is normocephalic atraumatic. Eyes: EOMI, pupils are equal round and reactive to light. Nose: Midline septum with pink mucous membranes Mouth: Dentition unremarkable. Moist mucus membranes. Posterior oropharynx is not erythematous. No tonsillar hypertrophy. Uvula midline. Airway patent. Neck: No palpable lymphadenopathy. No nuchal rigidity. No thyromegaly. Cardiovascular: Regular rate and rhythm without murmurs, gallops, or rubs. Lungs: Clear to auscultation bilaterally. No wheezes, rhonchi, or rales. Abdomen: Soft, without tenderness to palpation in all 4 quadrants of the abdomen. No guarding, rebound, or rigidity. Normal bowel sounds are audible. No tenderness on palpation of McBurney's point. Extremities: No clubbing or cyanosis. The patient has 1+ pitting edema bilateral lower extremities, slightly worse on the left compared to the right which the patient reports is chronic. He denies having any calf tenderness on palpation. 2+ pulses in all 4 extremities. Back: No costovertebral angle tenderness to palpation. Neurologic Exam: Cranial nerves 2-12 were intact on exam. Strength is 5/5 in all 4 extremities. No sensory deficits noted. Skin Exam: No rash noted. Intact skin that is warm and dry. The patient is noted to have swelling of the groin, on general exam the patient is noted to have bilateral inguinal hernias that are reducible worse in the left compared to the right. Data Data Last Documented VS Vital Signs Date Time Temp Pulse Resp B/P (MAP) Pulse Ox O2 Delivery O2 Flow Rate FiO2 02/14/17 06:09 65 16 102/53 (69) 100 Room Air 02/14/17 03:27 97.8 Orders Orders Electrocardiogram (02/14/17 03:47) Complete Blood Count With Diff (02/14/17 03:47) Comprehensive Metabolic Panel (02/14/17 03:47) Creatine Kinase (Cpk) (02/14/17 03:47) Ckmb (Isoenzyme) Profile (02/14/17 03:47) Troponin I (02/14/17 03:47) B-Type Natriuretic Peptide (02/14/17 03:47) Prothrombin Time / Inr (Pt) (02/14/17 03:47) Act Partial Throm Time (Ptt) (02/14/17 03:47) Urinalysis - C+S If Indicated (02/14/17 03:47) Magnesium (Mg) (02/14/17 03:47) Chest, Single Ap (02/14/17 03:47) Iv Access Insert/Monitor (02/14/17 03:47) Ecg Monitoring (02/14/17 03:47) Oximetry (02/14/17 03:47) Drug Screen, Random Urine (02/14/17 03:47) Alcohol (Ethanol) (02/14/17 03:47) Salicylates (Aspirin) (02/14/17 03:47) Tylenol (Acetaminophen) (02/14/17 03:47) CKMB (02/14/17 03:40) CKMB% (02/14/17 03:40) Us Leg Venous Doppler Bilat (02/14/17 05:11) Labs Laboratory Tests Test 02/14/17 03:40 02/14/17 04:25 White Blood Count 3.3 TH/MM3 Red Blood Count 3.72 MIL/MM3 Hemoglobin 11.0 GM/DL Hematocrit 33.6 % Mean Corpuscular Volume 90.3 FL Mean Corpuscular Hemoglobin 29.7 PG Mean Corpuscular Hemoglobin Concent 32.9 % Red Cell Distribution Width 14.9 % Platelet Count 50 TH/MM3 Mean Platelet Volume 11.6 FL Neutrophils (%) (Auto) 61.3 % Lymphocytes (%) (Auto) 24.0 % Monocytes (%) (Auto) 11.1 % Eosinophils (%) (Auto) 3.1 % Basophils (%) (Auto) 0.5 % Neutrophils # (Auto) 2.0 TH/MM3 Lymphocytes # (Auto) 0.8 TH/MM3 Monocytes # (Auto) 0.4 TH/MM3 Eosinophils # (Auto) 0.1 TH/MM3 Basophils # (Auto) 0.0 TH/MM3 CBC Comment AUTO DIFF Differential Comment AUTO DIFF CONFIRMED Platelet Estimate LOW Platelet Morphology Comment ENLARGED Prothrombin Time 11.4 SEC Prothromb Time International Ratio 1.1 RATIO Activated Partial Thromboplast Time 23.1 SEC Blood Urea Nitrogen 9 MG/DL Creatinine 1.07 MG/DL Random Glucose 88 MG/DL Total Protein 6.1 GM/DL Albumin 3.2 GM/DL Calcium Level 8.0 MG/DL Magnesium Level 1.8 MG/DL Alkaline Phosphatase 44 U/L Aspartate Amino Transf (AST/SGOT) 18 U/L Alanine Aminotransferase (ALT/SGPT) 24 U/L Total Bilirubin 0.5 MG/DL Sodium Level 141 MEQ/L Potassium Level 3.0 MEQ/L Chloride Level 104 MEQ/L Carbon Dioxide Level 31.7 MEQ/L Anion Gap 5 MEQ/L Estimat Glomerular Filtration Rate 68 ML/MIN Total Creatine Kinase 219 U/L Creatine Kinase MB 2.9 NG/ML Troponin I LESS THAN 0.02 NG/ML B-Type Natriuretic Peptide 65 PG/ML Salicylates Level LESS THAN 1.7 MG/DL Acetaminophen Level LESS THAN 2.0 MCG/ML Ethyl Alcohol Level LESS THAN 3 MG/DL Urine Color YELLOW Urine Turbidity CLEAR Urine pH 5.5 Urine Specific [place] 1.018 Urine Protein TRACE mg/dL Urine Glucose (UA) NEG mg/dL Urine Ketones NEG mg/dL Urine Occult Blood NEG Urine Nitrite NEG Urine Bilirubin NEG Urine Urobilinogen LESS THAN 2.0 MG/DL Urine Leukocyte Esterase NEG Urine RBC 1 /hpf Urine WBC 1 /hpf Urine Squamous Epithelial Cells <1 /hpf Urine Hyaline Casts 10 /lpf Urine Mucus FEW /lpf Microscopic Urinalysis Comment CULT NOT INDICATED Urine Opiates Screen POS Urine Barbiturates Screen NEG Urine Amphetamines Screen NEG Urine Benzodiazepines Screen POS Urine Cocaine Screen NEG Urine Cannabinoids Screen POS MDM Medical Decision Making Medical Screen Exam Complete: Yes Emergency Medical Condition: Yes Medical Record Reviewed: Yes Interpretation(s) Last Impressions Lower Extremity Ultrasound 02/14/17510 Signed Impressions: Service Date/Time: Tuesday, February 14, 2017 05:37 - CONCLUSION: Negative exam with no evidence of deep venous thrombosis. Cullen Mederos MD Chest X-Ray 02/14/17 0347 Signed Impressions: Service Date/Time: Tuesday, February 14, 2017 03:52 - CONCLUSION: No acute disease. Cullen Mederos MD Differential Diagnosis Accidental versus intentional opiate overdose, versus pneumonia, versus congestive heart failure Narrative Course During the course of the patients emergency department visit, the patients history, examination, and differential diagnosis were reviewed with the patient. The patient was placed on a nurse monitoring with oximetry and frequent blood pressure monitoring. The patient had IV access obtained and blood work sent for analysis. The patient was placed on a nurse monitoring with oximetry and blood pressure monitoring. An ECG was done on arrival. The patient's ECG reveals an electronic atrial paced rhythm, no acute ST segment changes. QRS duration is 89 ms, QTC 438 ms. The patients laboratory studies were reviewed and remarkable for white count of 3.3, hemoglobin 11, platelets 50, monocytes 11.1 when compared to prior studies done at this facility the patient's findings are similar, the patient has a history of anemia and thrombocytopenia. CMP is remarkable for potassium of 3.0 which will be supplemented orally, GFR 68, calcium 8.0, alkaline phosphatase 44 , cardiac enzymes within normal limits, BNP is 65, albumin 3.2, PT 11.4, PTT 23.1. Urinalysis is unremarkable. Urine drug screen is positive for opiates, benzodiazepines, cannabinoids. Radiology studies were reviewed and remarkable for a chest x-ray that shows no acute cardiopulmonary disease, ultrasound of bilateral lower extremities reveals no evidence of DVT. The patient will be observed in the emergency department for any decline in respiratory effort while on pulse oximetry, and any recurrence of decline and is level of consciousness. The patient is observed and has no changes in his level of mentation over 4 hours the patient will be discharged home. The patient's case will be checked out to the oncoming emergency physician to reexamine the patient prior to discharge. Diagnosis Primary Impression: Opiate overdose Qualified Codes: T40.601A - Poisoning by unspecified narcotics, accidental ( unintentional), initial encounter Solange Hope MD Feb 14, 2017 03:54
[2017-02-14 04:13] LABS: BASOPHIL % 0.5 % (0.0-2.0); EOSINOPHIL # 0.1 TH/MM3 (0-0.4); EOSINOPHIL % 3.1 % (0.0-4.0); HEMATOCRIT 33.6 % (39.0-51.0); LYMPHOCYTE # 0.8 TH/MM3 (1.0-4.8); MEAN CELL VOLUME 90.3 FL (80.0-100.0); MEAN CORPUSCULAR HEMOGLOBIN 29.7 PG (27.0-34.0); MEAN CORPUSCULAR HGB CONC 32.9 % (32.0-36.0); MONO % 11.1 % (0.0-8.0); NEUT % 61.3 % (16.0-70.0); PLATELET COUNT 50 TH/MM3 (150-450); RED BLOOD COUNT 3.72 MIL/MM3 (4.50-5.90); RED CELL DISTRIBUTION WIDTH 14.9 % (11.6-17.2); WHITE BLOOD COUNT 3.3 TH/MM3 (4.0-11.0)
--- NOTE | 2017-02-14 04:17 | RADRPT ---
EXAM DATE/TIME: 02/14/2017 03:52 [facility] COMPARISON: CHEST SINGLE AP, September 09, 2016, 17:56. INDICATIONS : Short of breath. MEDICAL HISTORY : None. SURGICAL HISTORY : Pacemaker. ENCOUNTER: Initial ACUITY: 1 day PAIN SCORE: 0/10 LOCATION: Bilateral chest FINDINGS: A single view of the chest demonstrates the lungs to be symmetrically aerated without evidence of mas s, infiltrate or effusion. The cardiomediastinal contours are unremarkable. Osseous structures are intact. The left subclavian transvenous pacer remains in place. CONCLUSION: No acute disease. Cullen Mederos MD on February 14, 2017 at 4:15 Board Certified Radiologist. This report was verified electronically.
[2017-02-14 04:21] LABS: APTT (PATIENT) 23.1 SEC (24.3-30.1); INTERNATIONAL NORMALIZED RATIO 1.1 RATIO; PROTHROMBIN TIME - PATIENT 11.4 SEC (9.8-11.6)
[2017-02-14 04:22] LABS: HEMO FLAGS AUTO DIFF
[2017-02-14 04:33] LABS: ALT (GPT) 24 U/L (12-78); ANION GAP 5 MEQ/L (5-15); AST (GOT) 18 U/L (15-37); BICARBONATE 31.7 MEQ/L (21.0-32.0); BLOOD UREA NITROGEN 9 MG/DL (7-18); CHLORIDE 104 MEQ/L (98-107); GLOMERULAR FILTRATION RATE 68 ML/MIN (>89); MAGNESIUM 1.8 MG/DL (1.5-2.5); SODIUM (NA) 141 MEQ/L (136-145)
[2017-02-14 04:36] LABS: ACETAMINOPHEN LESS THAN 2.0 MCG/ML (10.0-30.0); ALKALINE PHOSPHATASE 44 U/L (45-117); CREATINE KINASE 219 U/L (39-308); TOTAL BILIRUBIN ADULT 0.5 MG/DL (0.2-1.0)
[2017-02-14 04:40] LABS: ALCOHOL LESS THAN 3 MG/DL (0-5)
[2017-02-14 04:49] LABS: BLOOD, URINE NEG (NEG); COMMENT (UR) CULT NOT INDICATED; CULTURE IF INDICATED CULT NOT INDICATED; GLUCOSE,URINE NEG (NEG); HYALINE CAST, URINE 10 /lpf (RARE); KETONE, URINE NEG (NEG); MUCUS URINE FEW /lpf (OCC); NITRITE,URINE NEG (NEG); PH, URINE 5.5 (5.0-8.5); SQUAMOUS EPITHELIAL CELL URINE <1 /hpf (0-5); URINE COLOR YELLOW (YELLW/STRAW)
[2017-02-14 04:52] LABS: CKMB 2.9 NG/ML (0.5-3.6)
[2017-02-14 05:46] LABS: PLATELET ESTIMATE SMEAR LOW (NORMAL); PLATELET MORPHOLOGY ENLARGED (NORMAL); SCAN/DIFF AUTO DIFF CONFIRMED
[2017-02-14 06:09] VITALS: BP 102/53; PULSE 65; RESP 16; O2SAT 100
--- NOTE | 2017-02-14 06:24 | RADRPT ---
EXAM DATE/TIME: 02/14/2017 05:37 [facility] COMPARISON: No previous studies available for comparison. INDICATIONS : Bilateral leg swelling. MEDICAL HISTORY : Myocardial infarction. Hypertension. Coronary artery disease. Arthritis. Depression. Anxiety. SURGICAL HISTORY : Pacemaker.Coronary artery stent. Brain aneurysm surgery. Bilateral knee replacement. ENCOUNTER: Initial ACUITY: >1 year PAIN SCORE: 1/10 LOCATION: Bilateral legs. TECHNIQUE: Venous ultrasound of the left and right leg was performed from the inguinal ligament to the proximal calf. Real-time, color Doppler and spectral tracing, compression and augmentation techniques were us ed. FINDINGS: RIGHT LEG: There is normal compressibility of the deep venous system from the inguinal region to the proximal ca lf. No echogenic clot is seen in the lumen of the common femoral, femoral, popliteal, and posterior tibial veins. There is a normal response of the venous system to proximal and distal augmentation an d respiration. LEFT LEG: There is normal compressibility of the deep venous system from the inguinal region to the proximal ca lf. No echogenic clot is seen in the lumen of the common femoral, femoral, popliteal, and posterior tibial veins. There is a normal response of the venous system to proximal and distal augmentation an d respiration. CONCLUSION: Negative exam with no evidence of deep venous thrombosis. Cullen Mederos MD on February 14, 2017 at 6:22 Board Certified Radiologist. This report was verified electronically.
[2017-02-14] MEDS ORDERED: POTA1TAB4 PO (07:27)
[2017-02-14] MEDS ORDERED: POTASSIUM CHLORIDE 25 MEQ EFFERVESCENT TAB PO ONE (07:30)
[2017-02-14 07:47] VITALS: BP 107/74; PULSE 68; RESP 18; O2SAT 96
--- NOTE | 2017-02-14 08:06 | PD ---
Physical Exam Date Seen by Provider: Feb 14, 2017 Time Seen by Provider: 07:00 Narrative Patient signed out to me at [address] Hope, please see her notes for further details. He apparently may have overmedicated himself, admits that he has not been sleeping well and thinks that that part of the problem. He is observed in the ER after initially seen for what is suspected to be pain medication related overdose, and is observed to be awake, alert, oriented, observed in the ER for more than 4 hours. At 8 AM, he is released with follow- up closely to primary care doctor. I have talked to him regarding careful use of his pain medications and that he may need to be discussed this issue with his primary care doctor, may need to be taken off of some of the medications. Return for new issues as needed. The plan has been discussed with him and he states understanding. Data Data Last Documented VS Vital Signs Date Time Temp Pulse Resp B/P (MAP) Pulse Ox O2 Delivery O2 Flow Rate FiO2 02/14/17 07:47 68 18 107/74 (85) 96 Room Air 02/14/17 03:27 97.8 Orders Orders Electrocardiogram (02/14/17 03:47) Complete Blood Count With Diff (02/14/17 03:47) Comprehensive Metabolic Panel (02/14/17 03:47) Creatine Kinase (Cpk) (02/14/17 03:47) Ckmb (Isoenzyme) Profile (02/14/17 03:47) Troponin I (02/14/17 03:47) B-Type Natriuretic Peptide (02/14/17 03:47) Prothrombin Time / Inr (Pt) (02/14/17 03:47) Act Partial Throm Time (Ptt) (02/14/17 03:47) Urinalysis - C+S If Indicated (02/14/17 03:47) Magnesium (Mg) (02/14/17 03:47) Chest, Single Ap (02/14/17 03:47) Iv Access Insert/Monitor (02/14/17 03:47) Ecg Monitoring (02/14/17 03:47) Oximetry (02/14/17 03:47) Drug Screen, Random Urine (02/14/17 03:47) Alcohol (Ethanol) (02/14/17 03:47) Salicylates (Aspirin) (02/14/17 03:47) Tylenol (Acetaminophen) (02/14/17 03:47) CKMB (02/14/17 03:40) CKMB% (02/14/17 03:40) Us Leg Venous Doppler Bilat (02/14/17 05:11) Potassium Chloride Eff (K-Lyte Cl Eff) (02/14/17 07:30) Labs Laboratory Tests Test 02/14/17 03:40 02/14/17 04:25 White Blood Count 3.3 TH/MM3 Red Blood Count 3.72 MIL/MM3 Hemoglobin 11.0 GM/DL Hematocrit 33.6 % Mean Corpuscular Volume 90.3 FL Mean Corpuscular Hemoglobin 29.7 PG Mean Corpuscular Hemoglobin Concent 32.9 % Red Cell Distribution Width 14.9 % Platelet Count 50 TH/MM3 Mean Platelet Volume 11.6 FL Neutrophils (%) (Auto) 61.3 % Lymphocytes (%) (Auto) 24.0 % Monocytes (%) (Auto) 11.1 % Eosinophils (%) (Auto) 3.1 % Basophils (%) (Auto) 0.5 % Neutrophils # (Auto) 2.0 TH/MM3 Lymphocytes # (Auto) 0.8 TH/MM3 Monocytes # (Auto) 0.4 TH/MM3 Eosinophils # (Auto) 0.1 TH/MM3 Basophils # (Auto) 0.0 TH/MM3 CBC Comment AUTO DIFF Differential Comment AUTO DIFF CONFIRMED Platelet Estimate LOW Platelet Morphology Comment ENLARGED Prothrombin Time 11.4 SEC Prothromb Time International Ratio 1.1 RATIO Activated Partial Thromboplast Time 23.1 SEC Blood Urea Nitrogen 9 MG/DL Creatinine 1.07 MG/DL Random Glucose 88 MG/DL Total Protein 6.1 GM/DL Albumin 3.2 GM/DL Calcium Level 8.0 MG/DL Magnesium Level 1.8 MG/DL Alkaline Phosphatase 44 U/L Aspartate Amino Transf (AST/SGOT) 18 U/L Alanine Aminotransferase (ALT/SGPT) 24 U/L Total Bilirubin 0.5 MG/DL Sodium Level 141 MEQ/L Potassium Level 3.0 MEQ/L Chloride Level 104 MEQ/L Carbon Dioxide Level 31.7 MEQ/L Anion Gap 5 MEQ/L Estimat Glomerular Filtration Rate 68 ML/MIN Total Creatine Kinase 219 U/L Creatine Kinase MB 2.9 NG/ML Troponin I LESS THAN 0.02 NG/ML B-Type Natriuretic Peptide 65 PG/ML Salicylates Level LESS THAN 1.7 MG/DL Acetaminophen Level LESS THAN 2.0 MCG/ML Ethyl Alcohol Level LESS THAN 3 MG/DL Urine Color YELLOW Urine Turbidity CLEAR Urine pH 5.5 Urine Specific [place] 1.018 Urine Protein TRACE mg/dL Urine Glucose (UA) NEG mg/dL Urine Ketones NEG mg/dL Urine Occult Blood NEG Urine Nitrite NEG Urine Bilirubin NEG Urine Urobilinogen LESS THAN 2.0 MG/DL Urine Leukocyte Esterase NEG Urine RBC 1 /hpf Urine WBC 1 /hpf Urine Squamous Epithelial Cells <1 /hpf Urine Hyaline Casts 10 /lpf Urine Mucus FEW /lpf Microscopic Urinalysis Comment CULT NOT INDICATED Urine Opiates Screen POS Urine Barbiturates Screen NEG Urine Amphetamines Screen NEG Urine Benzodiazepines Screen POS Urine Cocaine Screen NEG Urine Cannabinoids Screen POS MDM Medical Record Reviewed: Yes Supervised Visit with ETHAN: No Diagnosis Primary Impression: Opiate overdose Qualified Codes: T40.601A - Poisoning by unspecified narcotics, accidental ( unintentional), initial encounter Patient Instructions: General Instructions, Adult Overdose (ED), Opioid Overdose (ED) Departure Forms: Tests/Procedures Scripts Potassium Chloride ER (K-Tab) 20 Meq Tab 20 MEQ PO BID for Electrolyte Replacement for 3 Days, #6 TAB 0 Refills Prov: Solange Hope MD 02/14/17 Julissa Campos MD Feb 14, 2017 08:06
--- NOTE | 2017-02-14 10:15 | EKG ---
Date Performed: 02/14/2017 Time Performed: 03:33:25 PTAGE: 71 years EKG: ELECTRONIC ATRIAL PACEMAKER ABNORMAL RHYTHM ECG Compared to prior tracing no significant lucas coleman DOCTOR: Jhonathan Mathew Interpretating Date/Time 02/14/2017 10:14:27
== END 2017-02-14 09:14 | disposition home or self-care (01) ==
LOC: NEPE 03:21
DX: T40.601A Poisoning by unspecified narcotics, accidental (unintentional), initial encounter (principal); I10 Essential (primary) hypertension; I25.10 Atherosclerotic heart disease of native coronary artery without angina pectoris; F17.290 Nicotine dependence, other tobacco product, uncomplicated; M79.89 Other specified soft tissue disorders; R06.02 Shortness of breath; Z79.899 Other long term (current) drug therapy
CPT/HCPCS: 71010; 80053; 80307; 81001; 82550; 82552; 83735; 83880; 84484; 85025; 85610; 85730; 93005; 93970; 99285